=== PATIENT | female | born 1995 | race Caucasian/White ===

== ENCOUNTER 2023-10-16 05:36 | Inpatient (IN) | payer OTHER, SELFPAY ==
[2023-10-16 06:04] VITALS: BMI 33.1
[2023-10-16 06:06] VITALS: BP 138/81
[2023-10-16 06:41] LABS: Hematocrit 38.8 % (37.0-47.0); Hemoglobin 13.8 g/dL (12.0-16.0); Mean Corp Hgb Conc. 35.6 g/dL (33.0-37.0); Mean Corpuscular Hgb 33.3 pg (27.0-31.0); Mean Corpuscular Volume 93.7 fL (81.0-99.0); Mean Platelet Volume 10.8 fL (7.4-10.4); Platelet Count 176 10^3/uL (130-400); Red Blood Cell Count 4.14 10^6/uL (4.20-5.40); Red Cell Dist. Width 11.9 % (11.5-14.5); White Blood Cell Count 10.5 10^3/uL (4.8-10.8)
[2023-10-16] MEDS: BICITRA 30 ML PO (07:31)
[2023-10-16] MEDS: TYLENOL 1000 MG PO (07:31)
[2023-10-16] MEDS: AMOXIL 500 MG PO ×3 (10:30→22:12)
[2023-10-16] MEDS: ZOFRAN 4 MG IV ×2 (11:15→18:41)
[2023-10-16] MEDS: TORADOL 15 MG IV ×2 (14:28→20:23)
[2023-10-17] MEDS: TORADOL 15 MG IV ×2 (03:16→09:21)
[2023-10-17 05:12] LABS: Hematocrit 34.8 % (37.0-47.0); Hemoglobin 12.2 g/dL (12.0-16.0); Mean Corp Hgb Conc. 35.1 g/dL (33.0-37.0); Mean Corpuscular Hgb 33.9 pg (27.0-31.0); Mean Corpuscular Volume 96.7 fL (81.0-99.0); Mean Platelet Volume 10.7 fL (7.4-10.4); Platelet Count 146 10^3/uL (130-400); White Blood Cell Count 11.3 10^3/uL (4.8-10.8)
[2023-10-17] MEDS: ZOLOFT 200 MG PO (08:17)
[2023-10-17] MEDS: AMOXIL 500 MG PO ×3 (08:17→21:56)
[2023-10-17] MEDS: PRENATAL PLUS 1 TABLET PO (08:17)
--- NOTE | 2023-10-17 10:33 | W.PN.ANS.POP ---
Anesthesia Post Operative
- Anesthesia Post Op Note
Vital Signs Stable-See Nursing Note: Yes
Airway Patent: Yes
Adequate Pain Control: Yes
Change in Mental Status: No
Current Postoperative Nausea & Vomiting: No
Anesthesia Complications: No
General Anesthetic Recall: No
Unplanned Admission: No
Post Op Hydration Adequate: Yes
[2023-10-17] MEDS: TYLENOL 650 MG PO ×2 (15:49→21:57)
[2023-10-17] MEDS: MOTRIN 600 MG PO ×2 (15:50→21:56)
[2023-10-17 17:14] LABS: Syphilis/T. pallidum Ab Reflex Negative (Negative)
[2023-10-18] MEDS: TYLENOL 650 MG PO (06:20)
[2023-10-18] MEDS: MOTRIN 600 MG PO (06:20)
[2023-10-18] MEDS: AMOXIL 500 MG PO (08:26)
[2023-10-18] MEDS: ZOLOFT 200 MG PO (08:26)
[2023-10-18] MEDS: PRENATAL PLUS 1 TABLET PO (08:26)
--- NOTE | 2023-10-18 09:27 | W.DS.TRANS ---
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
-
Discharge Instructions:
Discharge Diagnosis/Procedures rcs
Instructions:
Stand-Alone Forms: LDRP Delivery
Changes to Home Medications: No
Discharge Medications:
DC Medications w/original date entered in [facility]
Tablet 1 tab PO DAILY Supplement 07/27/21
Sertraline 200 mg PO DAILY Mental Health/Anxiety 07/27/21
amoxicillin 875 mg tablet 875 mg PO BID Infection 10/16/23
ibuprofen 600 mg tablet 600 mg PO Q6HPRN PRN cramps 90 days #90 tabs 10/18/23
Home Medication Changes
Pending Results: No
== END 2023-10-18 14:04 | disposition home or self-care (01) | DRG 788 ==
LOC: LDRP 05:36
PROVIDERS: ADMITTING PHYSICIAN Obstetrics & Gynecology
PROC: 10D00Z1 Extraction of Products of Conception, Low, Open Approach (ICD-10-PCS; 2023-10-16)
PROC: 6A550ZT Pheresis of Cord Blood Stem Cells, Single (ICD-10-PCS; 2023-10-16)
DX: O34.211 Maternal care for low transverse scar from previous cesarean delivery (principal); Z3A.39 39 weeks gestation of pregnancy; Z37.0 Single live birth; O69.81X0 Labor and delivery complicated by cord around neck, without compression, not applicable or unspecified; J02.0 Streptococcal pharyngitis; Z86.14 Personal history of Methicillin resistant Staphylococcus aureus infection; O99.344 Other mental disorders complicating childbirth; F41.9 Anxiety disorder, unspecified; F32.A Depression, unspecified; O99.892 Other specified diseases and conditions complicating childbirth; N73.6 Female pelvic peritoneal adhesions (postinfective)
CPT/HCPCS: 85027; 86780; 86850; 86900; 86901

== ENCOUNTER 2025-02-23 19:56 | Observation (INO) | payer OTHER, SELFPAY ==
[2025-02-23 20:14] VITALS: BP 123/61; BMI 33.1
[2025-02-23 21:00] LABS: Hematocrit 37.6 % (37.0-47.0); Hemoglobin 13.6 g/dL (12.0-16.0); Mean Corp Hgb Conc. 36.2 g/dL (33.0-37.0); Mean Corpuscular Hgb 33.8 pg (27.0-31.0); Mean Corpuscular Volume 93.5 fL (81.0-99.0); Mean Platelet Volume 10.6 fL (7.4-10.4); Platelet Count 197 10^3/uL (130-400); Red Blood Cell Count 4.02 10^6/uL (4.20-5.40); Red Cell Dist. Width 12.2 % (11.5-14.5); White Blood Cell Count 11.1 10^3/uL (4.8-10.8)
== END 2025-02-24 10:30 | disposition home or self-care (01) ==
LOC: LDRP 19:56
PROVIDERS: ADMITTING PHYSICIAN Obstetrics & Gynecology
DX: O26.893 Other specified pregnancy related conditions, third trimester (principal); O99.343 Other mental disorders complicating pregnancy, third trimester; F41.9 Anxiety disorder, unspecified; Z3A.31 31 weeks gestation of pregnancy; F32.A Depression, unspecified; R10.9 Unspecified abdominal pain; W01.0XXA Fall on same level from slipping, tripping and stumbling without subsequent striking against object, initial encounter; Y93.01 Activity, walking, marching and hiking; Y92.009 Unspecified place in unspecified non-institutional (private) residence as the place of occurrence of the external cause; Z81.1 Family history of alcohol abuse and dependence; Z81.3 Family history of other psychoactive substance abuse and dependence
CPT/HCPCS: 76815; 85027; 85460; 86850; 86900; 86901

== ENCOUNTER 2025-04-21 06:39 | Inpatient (IN) | payer OTHER, SELFPAY ==
[2025-04-21] MEDS: LR 1000 IV ×2 (07:19→08:29)
[2025-04-21 07:24] VITALS: BP 121/68; BMI 34.8
[2025-04-21 07:34] LABS: Hematocrit 37.6 % (37.0-47.0); Hemoglobin 13.2 g/dL (12.0-16.0); Mean Corp Hgb Conc. 35.1 g/dL (33.0-37.0); Mean Corpuscular Volume 93.8 fL (81.0-99.0); Platelet Count 173 10^3/uL (130-400); Red Cell Dist. Width 12.3 % (11.5-14.5)
[2025-04-21] MEDS: TYLENOL 975 MG PO (07:56)
[2025-04-21] MEDS: BICITRA 30 ML PO (08:30)
[2025-04-21] MEDS: ANCEF 10 IV (08:42)
[2025-04-21] MEDS: PITOCIN 30 UNITS/NSS 500 ML IV ×2 (09:20→15:03)
[2025-04-21] MEDS: TORADOL 15 MG IV ×3 (12:11→23:51)
[2025-04-21] MEDS: COLACE 100 MG PO (19:52)
[2025-04-21] MEDS: ZOLOFT 200 MG PO (19:52)
[2025-04-22 05:09] LABS: Hematocrit 33.3 % (37.0-47.0); Hemoglobin 11.5 g/dL (12.0-16.0); Mean Corp Hgb Conc. 34.5 g/dL (33.0-37.0); Mean Corpuscular Volume 96.0 fL (81.0-99.0); Platelet Count 138 10^3/uL (130-400); Red Cell Dist. Width 12.4 % (11.5-14.5)
[2025-04-22] MEDS: MYLICON 80 MG PO (05:51)
[2025-04-22] MEDS: TORADOL 15 MG IV (05:51)
[2025-04-22] MEDS: PRENATAL PLUS 1 TABLET PO (08:56)
[2025-04-22] MEDS: ZOLOFT 200 MG PO (08:56)
[2025-04-22] MEDS: COLACE 100 MG PO ×2 (08:56→19:18)
[2025-04-22 11:13] LABS: Syphilis/T. pallidum Ab Reflex Negative (Negative)
[2025-04-22] MEDS: MOTRIN 600 MG PO ×2 (11:28→17:56)
[2025-04-22] MEDS: TYLENOL 650 MG PO ×2 (11:28→17:55)
[2025-04-23] MEDS: MOTRIN 600 MG PO ×5 (00:25→23:29)
[2025-04-23] MEDS: TYLENOL 650 MG PO ×5 (00:25→23:29)
[2025-04-23] MEDS: ZOLOFT 200 MG PO (08:31)
[2025-04-23] MEDS: PRENATAL PLUS 1 TABLET PO (08:32)
[2025-04-23] MEDS: COLACE 100 MG PO ×2 (08:32→19:49)
[2025-04-24] MEDS: TYLENOL 650 MG PO (07:21)
[2025-04-24] MEDS: PRENATAL PLUS 1 TABLET PO (07:21)
[2025-04-24] MEDS: ZOLOFT 200 MG PO (07:21)
[2025-04-24] MEDS: MOTRIN 600 MG PO (07:21)
[2025-04-24] MEDS: COLACE 100 MG PO (07:21)
--- NOTE | 2025-04-24 08:21 | W.DS.TRANS ---
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
-
Discharge Instructions:
Instructions:
Stand-Alone Forms:
Changes to Home Medications: No
Discharge Medications:
DC Medications w/original date entered in [facility]
Sertraline 200 mg PO DAILY Mental Health/Anxiety 07/27/21
Vitamin 1 tab PO DAILY Supplement 02/23/25
Home Medication Changes
Pending Results: No
Total time spent discharging patient (in min): 15
== END 2025-04-24 13:02 | disposition home or self-care (01) | DRG 785 ==
LOC: LDRP 06:39
PROVIDERS: ADMITTING PHYSICIAN Obstetrics & Gynecology
PROC: 10D00Z1 Extraction of Products of Conception, Low, Open Approach (ICD-10-PCS; 2025-04-21)
PROC: 0UT70ZZ Resection of Bilateral Fallopian Tubes, Open Approach (ICD-10-PCS; 2025-04-21)
DX: O34.211 Maternal care for low transverse scar from previous cesarean delivery (principal); Z3A.39 39 weeks gestation of pregnancy; Z37.0 Single live birth; O69.81X0 Labor and delivery complicated by cord around neck, without compression, not applicable or unspecified; O99.344 Other mental disorders complicating childbirth; F32.A Depression, unspecified; F41.9 Anxiety disorder, unspecified; Z30.2 Encounter for sterilization; Z79.82 Long term (current) use of aspirin; Z86.14 Personal history of Methicillin resistant Staphylococcus aureus infection
CPT/HCPCS: 36415; 58605; 85027; 86780; 86850; 86900; 86901; 88302